=== PATIENT | male | born 1980 | race Caucasian/White ===

== ENCOUNTER 2022-04-08 09:46 | Day surgery (SDC) | payer BC ==
[~2022-04-08 09:46] MED LIST: Lactated Ringers 1,000 ML IV SCH; Sodium Chloride 0.9% 10 ML Syringe FLUSH PRN; Sodium Chloride 0.9% 2.5 ML Syringe FLUSH PRN; Sodium Chloride 0.9% 20 ML SDV IV PRN
[2022-04-08] MEDS ORDERED: Lidocaine 2% 5 ML SDV ONE (10:06)
[2022-04-08] MEDS ORDERED: Propofol 200 MG/20 ML SDV ONE ×2 (10:07→10:39)
[2022-04-08] MEDS ORDERED: fentaNYL 100 MCG/2 ML SDV ONE (10:07)
== END 2022-04-08 12:00 | disposition home or self-care (01) ==
LOC: MW.SDS 09:46
PROVIDERS: ATTEND Surgery
DX: Z12.11 Encounter for screening for malignant neoplasm of colon (principal); D12.3 Benign neoplasm of transverse colon; D12.8 Benign neoplasm of rectum; F41.0 Panic disorder [episodic paroxysmal anxiety]; I10 Essential (primary) hypertension; F17.210 Nicotine dependence, cigarettes, uncomplicated; Z80.0 Family history of malignant neoplasm of digestive organs; Z79.899 Other long term (current) drug therapy
CPT/HCPCS: 45380; J2704; J3010; J7120; 00812; J3490